=== PATIENT | female | born 1960 | race Caucasian/White ===

== ENCOUNTER 2025-01-11 17:00 | Emergency (ER) | payer OTHER, SELFPAY ==
[2025-01-11 17:05] VITALS: BP 182/116
--- NOTE | 2025-01-11 19:03 | ED.GENMED ---
History of Present Illness
General
Chief Complaint: Musculo-Skeletal Complaint
Source: patient
Exam Limitations: none
Time Seen by Provider: 01/11/25 18:25
Nursing documentation reviewed up to this point in time: agreed with
History of Present Illness
History of Present Illness:
Patient is a 64-year-old female who presents with discomfort to sternum and upper back. Patient reports symptoms started after dropping a 200 mL bottle of laundry detergent on her chest 1 week ago. She has been taking Excedrin and aspirin however
symptoms have not improved. She denies any shortness of breath or pain with deep breath she does however complain of pain when she presses to the area of her sternum and also bends and moves and twists. She is not on blood thinners. She denies any
abdominal pain no other injuries. She does feel slight soreness to her upper back with movement only. She denies any lightheaded dizziness nausea vomiting.
Review of Systems
Review of Systems
Allergies reviewed?: Yes
All Other Systems: ROS reviewed and negative except as documented in HPI and ROS
Constitutional: Reports no symptoms; Denies fever, fatigue or chills
Respiratory: Reports other (pain over strernum region); Denies trouble breathing
Cardiac: Reports no symptoms
ABD/GI: Reports no symptoms; Denies abdominal pain, nausea or vomiting
Musculoskeletal: Reports no symptoms
Skin: Reports no symptoms
Neurological: Reports no symptoms
Psychiatric: Reports no symptoms
Phy Exam
General Physical Exam
General Presentation: no apparent distress
General age: appears stated age
General Skin: warm and dry
General Habitus: normal
General Mental: alert
General Hydration: appears well hydrated
Cardiovascular Exam
Cardiovascular Exam: regular rate/rhythm, no murmur and normal peripheral pulses
Pulmonary Exam
Pulmonary Exam: lungs clear, no respiratory distress and other (Tender over the sternal area however no ecchymosis lungs are clear no crepitus; no tachypnea)
Neurological Exam
Neurological Exam: alert and oriented x3
Musculoskeletal Exam
Musculoskeletal Exam: full ROM
Course
Orders/Labs/Results
Orders:
Orders
01/11/25 17:12
EKG [Electrocardiogram (*1)] Urgent
Reason for Study: Chest Pain
EKG- Treatment ONCE
01/11/25 18:24
Chest [CR Chest - 2 Views ] Urgent
Comment:
Reason For Exam: trauma/pain
01/11/25 18:31
Sternum 2 Views CR [CR Sternum Min 2 Views] Urgent
Comment:
Reason For Exam: trauma
01/11/25 19:12
Vital Signs- Treatment ONCE
Frequency: Once
01/11/25 19:13
Ibuprofen [Motrin] 600 mg PO NOW STA
01/11/25 19:13
Lidocaine [Lidocaine 4% Patch] 1 patch TOPICAL NOW STA
Apply Lidocaine patch(s) to:: chest
Vital Signs
Initial and Last Documented VS:
Initial Vital Signs
Temp Pulse Resp BP Pulse Ox
98.2 F 108 18 182/116 95
01/11/25 17:05 01/11/25 17:05 01/11/25 17:05 01/11/25 17:05 01/11/25 17:05
Last Documented Vital Signs
Temp Pulse Resp BP Pulse Ox
98.2 F 108 18 182/116 95
01/11/25 17:05 01/11/25 17:05 01/11/25 17:05 01/11/25 17:05 01/11/25 17:05
Puppy Trainer consulted with Physician
Puppy Trainer consulted with physician?: Yes
Name of Physician Consulted: Kishor
MDM/Problems Addressed
MDM/Problems Addressed:
Patient with closed sternal fracture injury injury, 1 week ago. patient reports a large laundry detergent bottle fell and hit her chest about a week ago. She is not short of breath. Patient is not on blood thinners she is very well-appearing in
no acute distress lungs are clear no crepitus. Case reviewed with ED physician. Stable for discharge home. Will DC with ibuprofen Tylenol and pain medication as needed. Discussed close outpatient follow with family doctor and to return if any
worsening of symptoms.
*Radiology
Radiology exam reviewed: radiology read reviewed (Reviewed with radiology)
*Pulse Oximetry
Patient hypoxic: no
*EKG
Interpreted by ED Provider?: Yes
Heart Rate: 84
Rate: normal
Rhythm: sinus
*Critical Care Note
Total Time (30-74mins, 75-104mins- exclusive of procedures): Not Applicable
ED Attending Note
-
Portions of this chart may have been created with voice recognition software.� Occasional wrong word or��sound alike� substitutions may have occurred due to the inherent limitations of voice recognition software.
Discharge Plan
Departure
Patient Disposition: Home (Routine Discharge)
Date of Disposition: 01/11/25
Time of Disposition: 19:12
Patient with high blood pressure during this ER visit?: Yes
Condition: Fair
Covid-19: Not Applicable
Discharge Problem:
sternal fracture
Instructions: Ibuprofen, Sternal Fracture (DC), BLOOD PRESSURE
Prescriptions:
New
oxycodone 5 mg tablet
5 mg PO Q8H PRN (Reason: Pain) Qty: 10 0RF
Referrals:
UNKNOWN - PT DOES,NOT KNOW [Family Provider]
Activity Restrictions/Additional Instructions:
As discussed you have a sternal fracture.
You may take ibuprofen 400-600 mg every 8 hours with food and alternate with Tylenol. If needed however a stronger narcotic pain medication was sent to your pharmacy take as directed. This will cause drowsiness no driving or drink alcohol while
taking this medication. In addition this may cause constipation please take [id number] laxative while taking this. As discussed please practice deep breathing every hour
Follow-up with your family doctor in the next several days and return if any worsening of symptoms.
Interventions
Interventions:
*Risk Screen - Suicide Last Done: 01/11/25 17:05
*General Assessment Last Done: 01/11/25 17:05
ED-Musculoskeletal Assessment Last Done: 01/11/25 18:30
Discharge Date and Time
Print Language: [id number]
[2025-01-11] MEDS: LIDOCAINE 4% PATCH 1 PATCH TOPICAL (19:16)
[2025-01-11] MEDS: MOTRIN 600 MG PO (19:16)
[2025-01-11 19:37] VITALS: BP 139/90
== END 2025-01-11 19:39 | disposition home or self-care (01) ==
LOC: EMR 17:00
PROVIDERS: EMERGENCY PHYSICIAN Student in an Organized Health Care Education/Training Program
DX: S22.20XA Unspecified fracture of sternum, initial encounter for closed fracture (principal); W20.8XXA Other cause of strike by thrown, projected or falling object, initial encounter
CPT/HCPCS: 99284; 71046; 71120; 93005

== ENCOUNTER → 2025-03-02 09:54 | Outpatient (REF) | payer OTHER, SELFPAY | LOC: HWRAD 09:54 | PROVIDERS: ATTENDING PHYSICIAN Student in an Organized Health Care Education/Training Program | DX: Z13.820 Encounter for screening for osteoporosis (principal) | CPT/HCPCS: 77080 ==

== ENCOUNTER → 2025-05-15 06:43 | Outpatient (REF) | payer OTHER, SELFPAY | LOC: HWWDC 06:43 | PROVIDERS: ATTENDING PHYSICIAN Student in an Organized Health Care Education/Training Program | DX: Z12.31 Encounter for screening mammogram for malignant neoplasm of breast (principal) | CPT/HCPCS: 77063; 77067 ==